=== PATIENT | male | born 1995 | race Hispanic/Latino ===

== ENCOUNTER 2019-05-22 23:08 | Emergency (ER) | payer OTHER ==
[~2019-05-22] VITALS: Ht 177.8 cm; Wt 120.2 kg
--- OUTSIDE RECORDS SUMMARY | 2019-05-22 23:13 | XMS REPORT ---
Author [facility] Address Unknown Phone Unavailable Care Team Providers Care Occupational Therapy Asst Name Role Phone Unavailable Unavailable Payers Payer Name Policy Type Policy Number Effective Date Expiration Date Problems This patient has no known problems. Allergies, Adverse Reactions, Alerts Allergy Name Allergy Type Status Severity Reaction(s) Onset Date Inactive Date Treating Clinician Comments No Known Allergies DA Active U 2016-10-02 00:00:00 Medications This patient has no known medications. Results Test Description Test Time Test Comments Text Results Atomic Results Result Comments GASTRIC,BIOPSY 2018-07-01 15:49:00 RUN DATE: 07/01/18 [facility] PAGE 1 RUN TIME: 1549 Specimen Inquiry RUN USER: INTERFACE PATIENT: JEREMYNEYDA LOC: [facility] U #: [id number] AGE/SX: 23/M ROOM: RE06/30/18REG DR: Johny Beasley MD : 97 BED: DIS: STATUS: [facility] [place]: SPEC #: [id number] RECD: 06/30/18 STATUS: JUAN MATTHEWS #: [id number] WILLIAM: 06/30/18 [facility] DR: Johny Beasley MD ENTERED: 06/30/18 SP TYPE: GASTRIC BX OTHR DR: Dione Nassar MD ORDERED: GROSS COPIES TO: Dione Nassar MD [address] [facility] [address] [place] [address] Johny Beasley MD [address] [address] PROCEDURES: GROSS (07/01/18- 1309) TISSUES: 1. ANTRUM - BX 2. BODY BIOPSY OF STOMACH CLINICAL HISTORY COLLECTION DATE: 06/29/18 BLOOD IN STOOL, STOMACH PAIN FINAL DIAGNOSIS Gastric antrum, biopsy: PATCHY MILD CHRONIC GASTRITIS WITHOUT ACTIVITY NO AREAS OF MUCOSAL EROSION/ULCERATION NEGATIVE FOR INTESTINAL METAPLASIA NEGATIVE FOR HELICOBACTER ORGANISMS NEGATIVE FOR MALIGNANCY Gastric body, biopsy: GASTRIC MUCOSA WITH NO PATHOLOGIC ALTERATION RRB/juju Barton [phone] CONTINUED ON NEXT PAGE RUN DATE: 07/01/18 [facility] AGE 4 RUN TIME: 1549 Specimen Inquiry RUN USER: INTERFACE SPEC #: :[id number] PATIENT: NEYDA LUNA #[id number] (Continued) MACROSCOPIC The first specimen is received in formalin, labeled with the patient's name, identified as "antrum", and consists of two barboza-pink soft biopsy tissue measuring 0.4 and 0.5 cm, submitted as (1) for H E and Giemsa stains. The second specimen is received in formalin, labeled with the patient's name, identified as "body bx", and consists of two barboza-pink biopsy tissue measuring 0.5 cm each, submitted as (2). GROSS PERFORMED AT [facility] [address] [place] [id number] (p)[phone] MICROSCOPIC All of the stains, including any controls performed, stain appropriately. MICROSCOPIC PERFORMED AT [facility] [address] [place] [address] (p)[phone] PER[address] Diagnosis performed at: [facility] [address] [place] [address] Signed SIGNATURE ON FILE Mark Murillo MD 07/01/18 1549 END OF REPORT
[2019-05-23] MEDS ORDERED: AMOXICILLIN500 MG PO (01:01)
[2019-05-23] MEDS ORDERED: MEDROL4 MG PO (01:02)
[2019-05-23] MEDS ORDERED: IBUPROFEN400 MG PO (01:09)
== END 2019-05-23 01:18 | disposition home or self-care (01) ==
LOC: FSED 23:08
DX: R50.9 Fever, unspecified (principal); J02.0 Streptococcal pharyngitis; J04.0 Acute laryngitis
CPT/HCPCS: 83518; 86308; 99283

== ENCOUNTER 2021-04-07 22:52 | Emergency (ER) | payer OTHER ==
[~2021-04-07] VITALS: Ht 177.8 cm; Wt 120.2 kg
[~2021-04-07 22:52] MED LIST: AMOXICILLIN500 MG PO; IBUPROFEN400 MG PO; MEDROL4 MG PO
[2021-04-07] MEDS ORDERED: BACTRIM DS TAB1 EACH PO (23:36)
[2021-04-07] MEDS ORDERED: IBUPROFEN600 MG PO (23:36)
[2021-04-07] MEDS ORDERED: CEPHALEXIN500 MG PO (23:36)
== END 2021-04-07 23:45 | disposition home or self-care (01) ==
LOC: ER 23:28
DX: L05.01 Pilonidal cyst with abscess (principal)
CPT/HCPCS: 99282

== ENCOUNTER 2022-01-27 19:51 | Emergency (ER) | payer OTHER ==
[~2022-01-27] VITALS: Ht 177.8 cm; Wt 120.2 kg
[~2022-01-27 19:51] MED LIST changes: +BACTRIM DS TAB1 EACH PO; +CEPHALEXIN500 MG PO; +IBUPROFEN600 MG PO
[2022-01-27 20:50] LABS: STREPTOCOCCUS GRP A ANTIGEN NEGATIVE (NEGATIVE)
[2022-01-27 21:04] LABS: INFLUENZAE A&B ANTIGEN (RAPID) POSITIVE FLU A (NEGATIVE)
[2022-01-27] MEDS ORDERED: TAMIFLU75 MG PO (21:05)
== END 2022-01-27 21:16 | disposition home or self-care (01) ==
LOC: ER 19:56
DX: R50.9 Fever, unspecified (principal); J10.1 Influenza due to other identified influenza virus with other respiratory manifestations; R05.9 Cough, unspecified; Z20.822 Contact with and (suspected) exposure to COVID-19
CPT/HCPCS: 0223U; 36415; 71046; 83518; 87070; 87400; 99283

== ENCOUNTER 2022-07-08 13:05 | Emergency (ER) | payer OTHER ==
[~2022-07-08] VITALS: Ht 177.8 cm; Wt 140.6 kg
[~2022-07-08 13:05] MED LIST changes: +TAMIFLU75 MG PO
[2022-07-08] MEDS ORDERED: BENZONATATE100 MG PO (14:38)
== END 2022-07-08 14:51 | disposition home or self-care (01) ==
LOC: ER 13:09
DX: R05.9 Cough, unspecified (principal); J06.9 Acute upper respiratory infection, unspecified; Z20.822 Contact with and (suspected) exposure to COVID-19
CPT/HCPCS: 71045; 83518; 87070; 99284; U0002

== ENCOUNTER 2024-03-24 18:38 | Emergency (ER) | payer OTHER ==
[~2024-03-24] VITALS: Ht 170.2 cm; Wt 145.1 kg
[~2024-03-24 18:38] MED LIST changes: +BENZONATATE100 MG PO
[2024-03-24] MEDS ORDERED: SODIUM CHLORIDE FLUSH 10 ML SYR IV PRN (19:30)
[2024-03-24 19:45] LABS: BASOPHILS # (AUTO) 0.1 (0.0-0.1); BASOPHILS % 0.9 % (0.0-1.0); EOSINOPHILS # (AUTO) 0.3 (0.0-0.4); HEMOGLOBIN 14.9 g/dL (14.0-18.0); LYMPHOCYTES # (AUTO) 1.7 (1.0-3.2); LYMPHOCYTES % 31.6 % (18.0-39.1); MEAN CORPUSCULAR HEMOGLOBIN 28.9 pg (28-32); MEAN CORPUSCULAR HGB CONC 31.7 g/dL (31-35); MEAN CORPUSCULAR VOLUME 91.1 fL (81-99); MONOCYTES # (AUTO) 0.9 (0.2-0.8); MONOCYTES % 17.5 % (4.4-11.3); NEUTROPHILS # (AUTO) 2.3 (2.1-6.9); NEUTROPHILS % 43.6 % (38.7-80.0); PLATELET COUNT 212 x10e3/uL (140-360); RED BLOOD COUNT 5.16 x10e6/uL (4.3-5.7); RED CELL DISTRIBUTION WIDTH 13.3 % (11.7-14.4); WHITE BLOOD COUNT 5.31 x10e3/uL (4.8-10.8)
[2024-03-24] MEDS: KETOROLAC TROMETHAMINE 30 MG/ML VIAL IV STA (19:56)
[2024-03-24 20:03] LABS: INFLUENZA A AG POSITIVE (NEGATIVE); INFLUENZA B AG NEGATIVE (NEGATIVE)
[2024-03-24 20:04] LABS: ALBUMIN 3.8 g/dL (3.5-5.0); ALBUMIN/GLOBULIN RATIO 1.2 (0.8-2.0); BILIRUBIN,TOTAL 0.4 mg/dL (0.2-1.2); CALCIUM 9.2 mg/dL (8.4-10.2); CORONAVIRUS COVID-19 AG NEGATIVE (NEGATIVE); CREATININE, SERUM 1.04 mg/dL (0.72-1.25); TOTAL PROTEIN 7.1 g/dL (6.5-8.1)
[2024-03-24 20:45] VITALS: PULSE 83; RESP 16; TEMP 99.5; O2SAT 100
== END 2024-03-24 20:54 | disposition home or self-care (01) ==
LOC: ER 19:10
DX: R50.9 Fever, unspecified (principal); J10.1 Influenza due to other identified influenza virus with other respiratory manifestations; R05.9 Cough, unspecified
CPT/HCPCS: 36415; 71046; 80053; 84484; 85025; 87428; 93005; 94760; 99284; J1885

== ENCOUNTER 2024-10-11 16:46 | Emergency (ER) | payer MEDICAID ==
[~2024-10-11] VITALS: Ht 170.2 cm; Wt 145.1 kg
[2024-10-11 17:59] LABS: STREPTOCOCCUS GRP A ANTIGEN NEGATIVE (NEGATIVE)
[2024-10-11 18:01] LABS: CORONAVIRUS COVID-19 AG POSITIVE (NEGATIVE)
[2024-10-11] MEDS ORDERED: PAXLOVID 150-11 EAC2 PO (18:18)
[2024-10-11 18:27] VITALS: PULSE 97; RESP 20; TEMP 98.7; O2SAT 98
== END 2024-10-11 18:29 | disposition home or self-care (01) ==
LOC: ER 17:59
DX: R05.9 Cough, unspecified (principal); U07.1 COVID-19; R51.9 Headache, unspecified; R53.81 Other malaise; E78.5 Hyperlipidemia, unspecified; J45.909 Unspecified asthma, uncomplicated
CPT/HCPCS: 71046; 83518; 87070; 99283